=== PATIENT | male | born 1960 | race Caucasian/White ===

== ENCOUNTER 2020-01-27 14:02 | Emergency (ER) | payer SELFPAY ==
[~2020-01-27] VITALS: Ht 182.9 cm; Wt 115.0 kg
[2020-01-27 14:11] VITALS: TEMP 102.3
[2020-01-27 16:14] LABS: BASO % 0.5 % (0.0-2.0); EOS % 0.2 % (0-4.0); GRAN # 2.8 (1.4-6.5); GRAN % 68.1 % (42.2-75.2); HEMATOCRIT 44.6 % (42.0-52.0); HEMOGLOBIN 15.2 g/dl (13.5-18.0); LYMPH # 0.6 (1.2-3.4); LYMPH % 14.9 % (20.0-51.0); MEAN CELL VOLUME 92 fl (80.0-100.0); MEAN CORPUSCULAR HEMOGLOBIN 31 pg (27.0-31.0); MEAN CORPUSCULAR HGB CONC 34 g/dl (33.0-37.0); MONO # 0.7 (0.1-0.6); MONO % 16.1 % (1.7-9.3); RED BLOOD COUNT 4.86 M/mm3 (4.20-5.60); REDCELL DISTRIBUTION WIDTH-CV 12.8 % (11.5-14.5)
[2020-01-27 16:19] LABS: COLLECTION METHOD CLEAN CATCH
[2020-01-27 16:19] LABS: BILIRUBIN,TOTAL 1.8 mg/dL (0.0-1.0); CALCIUM 8.7 mg/dL (8.4-10.2); CREATININE, serum 0.86 (0.66-1.25); POTASSIUM 3.9 mmol/L (3.4-5.0); TOTAL PROTEIN 7.3 gm/dL (6.4-8.2)
[2020-01-27 16:25] LABS: MUCOUS Present /lpf; PH 5 (5-8); SQUAMOUS EPITHELIAL 0-2 /hpf; URINE APPEARANCE Clear; URINE BACTERIA None Seen /hpf; URINE BILIRUBIN Negative (NEGATIVE); URINE BLOOD 1+ (NEGATIVE); URINE COLOR Amber; URINE GLUCOSE 3+ (NEGATIVE); URINE KETONE 1+ (NEGATIVE); URINE LEUKOCYTE ESTERASE Negative (NEGATIVE); URINE NITRATE Negative (NEGATIVE); URINE PROTEIN(semi-quant) 2+ (NEGATIVE); URINE RBC 0-2 /hpf
[2020-01-27 16:26] LABS: PLATELET COUNT 49 K/mm3 (130-400)
[2020-01-27 16:32] LABS: C-REACTIVE PROTEIN 20.3 mg/dL (0.0-0.9)
[2020-01-27 17:02] VITALS: BP 128/64; PULSE 99
[2020-01-27] MEDS ORDERED: GLUCOPHAGE500 MG/TAB PO (19:47)
[2020-01-27] MEDS ORDERED: LIPITOR 40MG TA40 MG PO (19:48)
[2020-01-27] MEDS ORDERED: LOPRESSOR 225 MG/TAB PO (19:49)
[2020-01-27] MEDS ORDERED: FISH OIL 1000MG1 CAP PO (19:55)
[2020-01-27] MEDS ORDERED: MULTI VITAMINS1 TAB PO (19:55)
[2020-01-27] MEDS ORDERED: NITROSTAT0.4 MG/TAB SL (19:55)
[2020-01-27] MEDS ORDERED: ASPIRIN 81M81 MG/TA2 PO (19:56)
== END 2020-01-27 17:10 | disposition home or self-care (01) ==
LOC: COL.ER 14:02
PROVIDERS: Emergency Medicine
DX: D69.6 Thrombocytopenia, unspecified (principal); R50.9 Fever, unspecified; R51 Headache; Z20.828 Contact with and (suspected) exposure to other viral communicable diseases
CPT/HCPCS: J0696; J2405; J7030

== ENCOUNTER 2020-01-27 19:38 | Inpatient (IN) | payer OTHER ==
[2020-01-27] VITALS (59 sets, daily range): BP systolic 135; BP diastolic 71; PULSE 109; TEMP 100.8; O2SAT 92–98
[~2020-01-27] VITALS: Ht 172.7 cm; Wt 119.0 kg
[2020-01-27] MEDS ORDERED: GLUCOPHAGE500 MG/TAB PO (19:47)
[2020-01-27] MEDS ORDERED: LIPITOR 40MG TA40 MG PO (19:48)
[2020-01-27] MEDS ORDERED: LOPRESSOR 225 MG/TAB PO (19:49)
[2020-01-27] MEDS ORDERED: MULTI VITAMINS1 TAB PO (19:55)
[2020-01-27] MEDS ORDERED: NITROSTAT0.4 MG/TAB SL (19:55)
[2020-01-27] MEDS ORDERED: FISH OIL 1000MG1 CAP PO (19:55)
[2020-01-27] MEDS ORDERED: ASPIRIN 81M81 MG/TA2 PO (19:56)
[2020-01-27 21:09] LABS: TROPONIN-I 0.057 ng/mL (0.000-0.035)
[2020-01-27 22:39] LABS: INR 1.1 (0.8-3.0); PROTHROMBIN TIME 12.7 SECONDS (9.7-12.8)
[2020-01-27 23:02] LABS: ARTERIAL BLD GAS O2 SATURATION 95.7 % (92-100); ARTERIAL BLD GAS TCO2 CT 21.9; ARTERIAL BLOOD GAS BASE EXCESS -1.9 (-2-2); ARTERIAL BLOOD GAS PCO2 30.7 mmHg (35-45); ARTERIAL BLOOD GAS PO2 72.6 mmHg (80-100); ARTERIAL BLOOD GAS pH 7.45 (7.35-7.45)
[2020-01-28] VITALS (630 sets, daily range): BP systolic 108–127; BP diastolic 54–78; PULSE 78–92; TEMP 98.1–99.8; O2SAT 88–99
[2020-01-28 03:11] LABS: HEMATOCRIT 38.8 % (42.0-52.0); HEMOGLOBIN 13.4 g/dl (13.5-18.0); MEAN CELL VOLUME 90 fl (80.0-100.0); MEAN CORPUSCULAR HEMOGLOBIN 31 pg (27.0-31.0); MEAN CORPUSCULAR HGB CONC 35 g/dl (33.0-37.0); MEAN PLATELET VOLUME 11.1 fl (7.4-10.4); RED BLOOD COUNT 4.29 M/mm3 (4.20-5.60)
[2020-01-28 03:17] LABS: INR 1.2 (0.8-3.0); PROTHROMBIN TIME 13.8 SECONDS (9.7-12.8)
[2020-01-28 03:18] LABS: PLATELET COUNT 36 K/mm3 (130-400)
[2020-01-28 03:20] LABS: ALBUMIN 3.4 gm/dL (3.5-5.0); BILIRUBIN,TOTAL 1.3 mg/dL (0.0-1.0); CALCIUM 8.1 mg/dL (8.4-10.2); CREATININE, serum 0.83 (0.66-1.25); TOTAL PROTEIN 6.3 gm/dL (6.4-8.2)
[2020-01-28 03:32] LABS: TROPONIN-I 6 HR POST INITIAL 0.059 ng/mL (0.000-0.034)
[2020-01-28 03:41] LABS: LYMPHOCYTE 18 % (20.0-51.0); NEUTROPHILS 71 % (42.0-75.2); PLATELET ESTIMATE DECREASED (NORMAL)
[2020-01-28 05:20] LABS: TSH w REFLEX 1.04 uIU/mL (0.465-4.680)
[2020-01-28 05:36] LABS: HIV 1/2 Antibodies Non-Reactive; HIV-1p24 Antigen Non-Reactive
[2020-01-28 05:37] LABS: HSV SOURCE BLOOD (())
[2020-01-28 18:52] LABS: EBV EARLY ANTIGEN IGG Negative (()); EBV NUCLEAR ANTIGEN IGG Equivocal (())
[2020-01-28 18:55] LABS: LYME DISEASE ANTIBODIES Negative (Negative)
[2020-01-28 21:05] LABS: EBV IGM AB Negative (())
[2020-01-29] VITALS (525 sets, daily range): BP systolic 113–141; BP diastolic 65–176; PULSE 76–96; TEMP 97.8–98.4; O2SAT 89–99
[2020-01-29 05:34] LABS: MEAN CELL VOLUME 93 fl (80.0-100.0); MEAN CORPUSCULAR HEMOGLOBIN 31 pg (27.0-31.0); MEAN CORPUSCULAR HGB CONC 33 g/dl (33.0-37.0); PLATELET COUNT 52 K/mm3 (130-400); RED BLOOD COUNT 3.89 M/mm3 (4.20-5.60); REDCELL DISTRIBUTION WIDTH-CV 13.5 % (11.5-14.5)
[2020-01-29 05:35] LABS: BILIRUBIN,TOTAL 0.6 mg/dL (0.0-1.0); CALCIUM 7.7 mg/dL (8.4-10.2); CREATININE, serum 0.8 (0.66-1.25); MAGNESIUM 2.1 mg/dL (1.6-2.3); POTASSIUM 3.9 mmol/L (3.4-5.0); TOTAL PROTEIN 5.7 gm/dL (6.4-8.2)
[2020-01-29 05:54] LABS: INR 1.1 (0.8-3.0); PROTHROMBIN TIME 11.9 SECONDS (9.7-12.8)
[2020-01-29 06:10] LABS: BAND 7 % (0-10); EOSINOPHIL 3 % (0-4); LYMPHOCYTE 25 % (20.0-51.0); NEUTROPHILS 50 % (42.0-75.2); PLATELET ESTIMATE DECREASED (NORMAL)
[2020-01-30] VITALS (337 sets, daily range): BP systolic 106–141; BP diastolic 72–94; PULSE 64–81; TEMP 98.2–98.3; O2SAT 88–100
[2020-01-30 06:55] LABS: CYTOMEGALOVIRUS AB IGM INT Negative (Negative); CYTOMEGALOVIRUS IGG INTERP Negative (Negative)
[2020-01-30 09:44] LABS: HEMATOCRIT 38.9 % (42.0-52.0); HEMOGLOBIN 13.2 g/dl (13.5-18.0); MEAN CELL VOLUME 92 fl (80.0-100.0); MEAN CORPUSCULAR HEMOGLOBIN 31 pg (27.0-31.0); MEAN CORPUSCULAR HGB CONC 34 g/dl (33.0-37.0); MEAN PLATELET VOLUME 10.7 fl (7.4-10.4); PLATELET COUNT 89 K/mm3 (130-400); RED BLOOD COUNT 4.22 M/mm3 (4.20-5.60); REDCELL DISTRIBUTION WIDTH-CV 13.7 % (11.5-14.5)
[2020-01-30 09:55] LABS: ALBUMIN 3.4 gm/dL (3.5-5.0); BILIRUBIN,TOTAL 0.6 mg/dL (0.0-1.0); CALCIUM 8.6 mg/dL (8.4-10.2); CREATININE, serum 0.84 (0.66-1.25); INR 1.1 (0.8-3.0); POTASSIUM 4.2 mmol/L (3.4-5.0); PROTHROMBIN TIME 12.7 SECONDS (9.7-12.8); TOTAL PROTEIN 6.4 gm/dL (6.4-8.2)
[2020-01-30 10:22] LABS: EOSINOPHIL 6 % (0-4); NEUTROPHILS 50 % (42.0-75.2); PLATELET ESTIMATE DECREASED (NORMAL)
[2020-01-30 10:23] LABS: LYMPHOCYTE 39 % (20.0-51.0)
[2020-01-30] MEDS ORDERED: MONODOX100 PO (14:21)
[2020-01-31 06:06] LABS: ANAPLASMA PHAGOCYTOPHILA IGG <1:64 titer (<1:64); E.CHAFFEENSIS IGG AB <1:64 titer (<1:64)
[2020-01-31 12:47] LABS: WEST NILE VIRUS IGM 0.06 Index (())
== END 2020-01-30 15:50 | disposition home or self-care (01) | DRG 871 ==
LOC: COL.ER 19:38 → IMCU 20:13
PROVIDERS: Emergency Medicine; Internal Medicine Infectious Disease; Nurse Practitioner Family; ADMIT Hospitalist
DX: A41.9 Sepsis, unspecified organism (principal); I21.A1 Myocardial infarction type 2; G03.9 Meningitis, unspecified; E87.1 Hypo-osmolality and hyponatremia; I25.10 Atherosclerotic heart disease of native coronary artery without angina pectoris; I10 Essential (primary) hypertension; Z20.828 Contact with and (suspected) exposure to other viral communicable diseases; R65.20 Severe sepsis without septic shock; D69.6 Thrombocytopenia, unspecified; E78.5 Hyperlipidemia, unspecified; E11.9 Type 2 diabetes mellitus without complications; E80.6 Other disorders of bilirubin metabolism; Z79.84 Long term (current) use of oral hypoglycemic drugs; Z85.828 Personal history of other malignant neoplasm of skin
CPT/HCPCS: 99223-AI; 99233-AI; C9113; J0692; J0696; J1200; J1815; J2765; J3370; J7030; J7040; Q9967